=== PATIENT | male | born 1940 | race Caucasian/White ===

== ENCOUNTER 2017-01-09 19:50 | Emergency (ER) | payer OTHER ==
[~2017-01-09] VITALS: Ht 172.7 cm; Wt 78.8 kg
[~2017-01-09 19:50] MED LIST: LISI-167 PO
[2017-01-09 20:15] VITALS: BP 155/77
== END 2017-01-09 21:52 | disposition home or self-care (01) ==
LOC: ED 21:30
DX: S81.832A Puncture wound without foreign body, left lower leg, initial encounter (principal); X58.XXXA Exposure to other specified factors, initial encounter; Y93.89 Activity, other specified; Y92.89 Other specified places as the place of occurrence of the external cause; Y99.9 Unspecified external cause status
CPT/HCPCS: 99282